=== PATIENT | female | born 1995 | race Caucasian/White ===

== ENCOUNTER 2019-03-27 10:36 | Emergency (ER) | payer BC ==
[~2019-03-27] VITALS: Ht 175.3 cm; Wt 56.7 kg
--- NOTE | 2019-03-27 10:55 | NUR ---
patient BIB friend c/o palpitation since this morning around 830am, denies any pain nor chest pain. On room air, breathing evenly and unlabored. Connected to the monitor and pulse ox. kept comfortable, will continue to monitor accordingly.
--- NOTE | 2019-03-27 11:36 | NUR ---
Patient discharged to home in stable condition. Written and verbal after care instructions given. Patient verbalizes understanding of instruction.
[2019-03-27 11:37] VITALS: BP 99/59
== END 2019-03-27 11:37 | disposition home or self-care (01) ==
LOC: ER 10:36
DX: F41.9 Anxiety disorder, unspecified (principal)